=== PATIENT | female | born 1930 | race Caucasian/White ===

== ENCOUNTER 2017-01-14 10:30 | Outpatient (RCR) | payer MEDICARE, BC | END 2017-01-14 11:00 | disposition home or self-care (01) | LOC: PT 10:30 | DX: M25.511 Pain in right shoulder (principal); M25.611 Stiffness of right shoulder, not elsewhere classified; G25.2 Other specified forms of tremor ==

== ENCOUNTER 2017-04-16 11:00 | Outpatient (RCR) | payer MEDICARE, BC ==
[2017-04-17] MEDS ORDERED: TIROSINT75 MC1 PO (13:44)
[2017-04-17] MEDS ORDERED: ADULT ASPIRIN R81 MG PO (13:44)
[2017-04-17] MEDS ORDERED: PRINIVIL5 M1 PO (13:44)
[2017-04-17] MEDS ORDERED: FUROSEMIDE20 MG PO (13:44)
[2017-04-17] MEDS ORDERED: PRAVACHOL 20MG20 MG PO (13:48)
[2017-04-17] MEDS ORDERED: MYSOLINE50 M1 PO (13:49)
[2017-04-17] MEDS ORDERED: ACETAMINOPHEN325 M3 PO (13:49)
[2017-04-17] MEDS ORDERED: IBU400 MG PO (13:50)
[2017-04-17] MEDS ORDERED: SENNOSIDES PO (13:51)
[2017-04-17] MEDS ORDERED: [UNRECOGNIZED DRUG - OTHER] PO (13:51)
[2017-04-17] MEDS ORDERED: LIDOPATCH1 EACH TP (14:00)
== END 2017-07-12 | disposition home or self-care (01) ==
LOC: PT
DX: G56.21 Lesion of ulnar nerve, right upper limb (principal)

== ENCOUNTER 2017-04-17 10:26 | Inpatient (IN) | payer MEDICARE, BC ==
[~2017-04-17] VITALS: Ht 149.9 cm; Wt 48.2 kg
--- NOTE | 2017-04-17 10:26 | NUR ---
PT ARRIVES VIA POV, ADMITTED TO [facility], ROOM 205. PT A&O, DENIES PAIN, REPORTS BACK IS "ACHY". REDNESS NOTED TO L WRIST, PT REPORTS HAVING "SPIDER BITE" THAT SHE HAS BEEN TREATING X 2 DAYS WITH HYDROCORTISONE CREAM. REPORTS REDNESS IS BETTER. SKIN TO COCCYX AREA NOTED TO HAVE BROWN DISCOLORATION BUT NO OPEN AREAS. STATES THAT WHILE HOSPITALIZED AT [facility] RECENTLY SHE HAD BEEN TREATED FOR STAGE II PRESSURE ULCER BUT UPON F/U WITH DR ORTEGA ON 04/09/17, HE REMOVED DRESSING AND REPORTED TO PT THAT IT APPEARED TO BE HEALED. RLE 3+ PITTING EDEMA, LLE 2+ PITTING EDEMA. PT REPORTS PRIOR TO FALL IN MARCH, SHE DID NOT HAVE LE EDEMA SHE WAS VERY ACTIVE. PT USES WALKER FOR AMBULATION BUT REPORTS PRIOR TO FALL SHE AMBULATED WITHOUT ASSISTIVE DEVICES. PT STATES THAT SHE WAS D/C FROM [facility]PROX 2 WEEKS AGO TO HOME, WAS RECEIVING OP THERAPY AT [facility] AND DENIES HOME HEALTH. ACCORDING TO PT, SHE HAS NOT SHOWERED OR CHANGED CLOTHING SINCE RETURNING HOME 2 WEEKS AGO BECAUSE "I COULDN'T DRESS OR UNDRESS MYSELF." ONCE PT IS ADMITTED, GIFTY HARRISON, OT, ASSISTS WITH SHOWER.
[2017-04-17 11:11] VITALS: BP 100/49
--- NOTE | 2017-04-17 13:20 | NUR ---
GIFTY HARRISON, OT, FITS PT WITH WRIST SPLINT TO ASSIST WITH WEAKNESS AND WRIST "DROP". INSTRUCTS THAT PT SHOULD WEAR SPLINT WHILE SLEEPING AND WHENEVER ADDITIONAL SUPPORT IS NEEDED.
[2017-04-17] MEDS ORDERED: FUROSEMIDE20 MG PO (13:44)
[2017-04-17] MEDS ORDERED: TIROSINT75 MC1 PO (13:44)
[2017-04-17] MEDS ORDERED: ADULT ASPIRIN R81 MG PO (13:44)
[2017-04-17] MEDS ORDERED: PRINIVIL5 M1 PO (13:44)
[2017-04-17 13:48] LABS: BASO # 0.1 (0.02-0.10); EOS # 0.2 (0.04-0.40); EOS % 3.4 % (1.0-5.0); HEMATOCRIT 32.6 % (37.0-47.0); HEMOGLOBIN 10.1 g/dL (12.5-16.0); LYMPH# 1.8 (1.50-4.00); MEAN CELL VOLUME 92 fl (78-100); MEAN CORPUSCULAR HEMOGLOBIN 29 pg (27-31); MEAN CORPUSCULAR HGB CONC 31 g/dL (33-37); MEAN PLATELET VOLUME 9.9 fl (7.4-10.4); MONO # 0.6 (0.20-0.80); NEU # 3.8 (1.40-6.50); PLATELET COUNT 323 K/mm3 (130-400); RED BLOOD COUNT 3.54 M/mm3 (4.10-5.30); WHITE BLOOD COUNT 6.5 K/mm3 (4.8-10.8)
[2017-04-17] MEDS ORDERED: PRAVACHOL 20MG20 MG PO (13:48)
[2017-04-17] MEDS ORDERED: ACETAMINOPHEN325 M3 PO (13:49)
[2017-04-17] MEDS ORDERED: MYSOLINE50 M1 PO (13:49)
[2017-04-17] MEDS ORDERED: IBU400 MG PO (13:50)
[2017-04-17] MEDS ORDERED: SENNOSIDES PO (13:51)
[2017-04-17] MEDS ORDERED: [UNRECOGNIZED DRUG - OTHER] PO (13:51)
[2017-04-17] MEDS ORDERED: LIDOPATCH1 EACH TP (14:00)
[2017-04-17 14:01] LABS: ALBUMIN 3.3 g/dL (3.5-5.0); BUN/CREATININE RATIO 33.7 (6.0-26.0); CALCIUM 8.3 mg/dL (8.4-10.2); POTASSIUM 4.8 mmol/L (3.6-5.0); TOTAL BILIRUBIN 0.1 mg/dL (0.2-1.3); TOTAL PROTEIN 6.4 g/dL (6.3-8.2)
--- NOTE | 2017-04-17 18:45 | NUR ---
Report received from Cristin Santana RN
[2017-04-17 18:51] VITALS: BP 87/44
--- NOTE | 2017-04-17 20:35 | NUR ---
Report received from Cristin Santana RN
--- NOTE | 2017-04-17 20:36 | NUR ---
Resting in bed, bed alarm set. Head of bed elevated. Pt's eyes closed even respirations.
--- NOTE | 2017-04-17 20:37 | NUR ---
Resting in bed, bed alarm set. Head of bed elevated. Pt wearing splint to right forearm, wrist and hand.
--- NOTE | 2017-04-17 21:46 | NUR ---
Given evening snack of vanilla pudding. Ate 100%. I assisted pt with spoon. Pt stated she has trouble holding items in her left hand. Rt hand and wrist have splint on her.
--- NOTE | 2017-04-17 22:00 | NUR ---
Pt assisted with own HS care and oral care.
--- NOTE | 2017-04-18 06:00 | NUR ---
Q hourly checks done. Bed alarm set. Pt has repositioned self with assistance.
[2017-04-18 06:29] VITALS: BP 97/51
--- NOTE | 2017-04-18 07:00 | NUR ---
Report given to Sue Gonzalez RN
--- NOTE | 2017-04-18 07:15 | NUR ---
report from sandhya smith
[2017-04-18 07:52] LABS: URINE APPEARANCE HAZY; URINE COLOR YELLOW
[2017-04-18 07:53] LABS: URINE BILIRUBIN NEGATIVE (NEGATIVE); URINE BLOOD NEGATIVE (NEGATIVE); URINE GLUCOSE NEGATIVE (NEGATIVE); URINE KETONE NEGATIVE (NEGATIVE); URINE LEUKOCYTE ESTERASE 1+ (NEGATIVE); URINE NITRATE NEGATIVE (NEGATIVE); URINE PROTEIN(semi-quant) TRACE mg/dL (NEGATIVE); URINE UROBILINOGEN NORMAL (NORMAL)
--- NOTE | 2017-04-18 08:30 | NUR ---
currently up in chair at bedside, describes chronic shoulder pain that is fairly well resolved with scheduled Motrin, she currently has a blue splint to right wrist-forearm, she states she thinks this feels better, chair alarms on, denies complaint or request.
--- NOTE | 2017-04-18 09:35 | NUR ---
Pt up to BR per request using walker and CGA w/ steady gait. Pt has med formed stool. Assisted pt to pull up pants (pt was able to get pants down without problems). Pt ambulates in garcia using walker w/ CGA to ER door and back - refused need to rest usp thru. Returns to recliner at bedside. Call light in reach and chair alarm on. Denies further needs. Awaiting family to bring her some clothes today. Had shower yesterday she reports so good for today.
--- NOTE | 2017-04-18 14:48 | NUR ---
PATIENTS DAUGHTER ARRIVES, DISCUSS PLAN OF CARE
[2017-04-18 18:25] VITALS: BP 93/49
--- NOTE | 2017-04-18 18:31 | NUR ---
currently in chair at bedside, blue brace remains to right wrist, this extrem is elevated, she does do exercises to this extrem frequently
--- NOTE | 2017-04-18 19:16 | NUR ---
REPORT TO NEEMA BETTS
--- NOTE | 2017-04-18 19:55 | NUR ---
Resting in bed, bed alarm set. Pt assisted with own HS and oral care. Denied having any needs or c/o's of pain.
--- NOTE | 2017-04-18 20:20 | NUR ---
Pt took evening medications in apple sauce. Pt ate the rest of the apple sauce for evening snack. Ate 100%. SCD's taken into room. Explained to pt what the SCD's are for. Pt stated she did not want to wear any Georges hose or SCD's tonight. She stated "I'll do it in the morning.
--- NOTE | 2017-04-19 01:10 | NUR ---
0100 Q hourly checks done. Bed alarm set. Pt has been resting in bed. Eyes closed even respirations. Pt has repositioned self. 0105 Pt used call light, up to bathroom, gait steady. Used walker, furs salesperson socks and gait belt on. Nursing staff at side.
--- NOTE | 2017-04-19 06:30 | NUR ---
Q hourly checks done. Bed alarm set. Pt currently awake and a/o x 3. Denies having any pain or SOB. Ambulated to the bathroom, used gait belt, box sealing machine feeder socks on and used walker. Myself at side. Gait steady.
[2017-04-19 06:33] VITALS: BP 102/58
--- NOTE | 2017-04-19 07:00 | NUR ---
Report to Sue Gonzalez RN
--- NOTE | 2017-04-19 07:10 | NUR ---
REPORT FROM NEEMA BETTS
--- NOTE | 2017-04-19 09:29 | NUR ---
UP IN CHAIR THIS AM FOR LETHA, DENIES DISCOMFORT, BLUE BRACE TO RIGHT WRIST REMOVED, FOR SKIN ASSESSEMENT AND SHOWER, SHE IS ENCOURAGD TO REMOVE THIS SEVERAL TIMES DAILY, CHAIR EXERCISES ARE ENCOURAGED.
--- NOTE | 2017-04-19 15:42 | NUR ---
RADIOLOGY HERE FOR X-RAY IN ED, HE COMPLETES THIS PATIENTS WHILE HERE
[2017-04-19 18:39] VITALS: BP 97/58
--- NOTE | 2017-04-19 18:58 | NUR ---
REPORT TO NEEMA BETTS
--- NOTE | 2017-04-19 20:00 | NUR ---
Resting in recliner, feet not elevated. Georges hose on. Pt denies having any needs or concerns.
--- NOTE | 2017-04-19 20:02 | NUR ---
Pt sitting on her chair cushion from home.
--- NOTE | 2017-04-19 20:30 | NUR ---
Ambulated in hallway, used walker gait belt and printing supplies sales representative socks on. Myself at pt's side. Gait steady. Pt a/o x 3. Visited with pt about her work history. Pt stated " You won't probably believe me but I was swing dance up until I fell." Pt stated, "I walk every day at home." Pt did own oral and HS care. I assisted pt with changing into night cloths. Bed alarm set.
--- NOTE | 2017-04-19 20:32 | NUR ---
Pt requested chair cushion to be placed under her coccyx.
--- NOTE | 2017-04-19 21:10 | NUR ---
Took evening medication with apple sauce. Pt ate the rest of the apple sauce for evening snack.
--- NOTE | 2017-04-20 02:10 | NUR ---
Q hourly checks done. Bed alarm set. Has been resting in bed eyes closed even respirations. Pt opens eyes when spoken too. Repositioned on to left side per pt request.
[2017-04-20 06:33] VITALS: BP 88/53
--- NOTE | 2017-04-20 07:15 | NUR ---
Report to Tabatha Nuñez RN
--- NOTE | 2017-04-20 07:20 | NUR ---
REPORT RECEIVED FROM ALPESH JOSEPH
--- NOTE | 2017-04-20 09:30 | NUR ---
PATIENT SITTING UP IN RECLINER. SHIFT ASSESSMENT COMPLETE. PATIENT ALERT AND ORIENTED X4. DENIES ANY PAIN OR DISCOMFORTS AT THIS TIME. DENIES SHORTNESS OF BREATH OR DIFFICULTIES BREATHING. HAS +3 EDEMA TO RIGHT LOWER EXT +2 EDEMA TO LEFT LOWER EXT. KNEE HIGH RYAN HOSE APPLIED AND PATIENT'S LEGS ELEVATED IN CHAIR. PATIENT'S CALL LIGHT WITHIN REACH. CHAIR ALARM ON.
[2017-04-20 09:45] VITALS: BP 109/67
[2017-04-20 18:26] VITALS: BP 96/52
--- NOTE | 2017-04-20 19:20 | NUR ---
Report received from Tabatha Nuñez RN. Pt up ambulating in hallway using walker, gait belt and falafel cart cook socks on. Gait steady. Brigida PLUMBING INSTRUCTOR at pt's side. Pt pleasant and talkative. Denies having any pain.
--- NOTE | 2017-04-20 21:05 | NUR ---
Awake and a/o x 3. Resting in recliner with feet down. RYAN hose on. Pt pleasant and talkative. Denies pain, nausea or SOB. Offered evening snack pt declined. Took evening medication without difficulty.
--- NOTE | 2017-04-20 23:00 | NUR ---
Report given to Sofia Gibbs RN. Pt resting in bed. Bed alarm set. Eyes closed even respirations. Brigida GOTTLIEB reported pt did own oral and HS care.
--- NOTE | 2017-04-21 00:30 | NUR ---
PT'S SCHEDULED MOTRIN GIVEN AT THIS TIME, REPORTS PAIN LEVEL OF 0, STATES WHEN SHE HAS PAIN IT IS LOCATED IN LOWER BACK, PT DENIES ANY NEEDS, ABLE TO TAKE PILLS WHOLE WITH NO DIFFICULTIES, SCD'S ON, NO ACUTE CHANGES NOTED OR NEEDS MENTIONED BY PATIENT AT THIS TIME, CALL LIGHT WITHIN REACH AND BED ALARM ON
[2017-04-21 06:35] VITALS: BP 136/62
--- NOTE | 2017-04-21 07:30 | NUR ---
REPORT FROM MARIE BETTS
--- NOTE | 2017-04-21 08:35 | NUR ---
PATIENT CURRENTLY IN CHAIR AT BEDSIDE, DENIES COMPLAINT OR REQUEST, SHE STATES SHE SLEEPS WELL UNTIL WE WAKE HER FOR NIGHT TIME MEDS, WHEN QUESTIONED SHE STATES SHE USUALLY ONLY TAKES MOTRIN AT BEDTIME AND SOMETIMES IN THE MORNING, ORDERS RECEIVED TO CHANGE MOTRIN TO AM/PM DOSE.
--- NOTE | 2017-04-21 13:49 | NUR ---
REPORT TO MAX BETTS
[2017-04-21 18:07] VITALS: BP 128/62
--- NOTE | 2017-04-21 20:55 | NUR ---
PATIENT SITTING ON SIDE OF BED. SHIFT ASSESSMENT COMPELTED AT THIS TIME. PATIENT A/O X4, DENIES PAIN. LUNGS CTA, DENIES COUGH OR SHORTNESS OF BREATH. +3 PITTING EDEMA NOTED TO RLE AND +2 PITTING EDEMA NOTED TO LLE, PATIENT EDUCATED ON ELEVATION THROUGHOUT THE DAY. BRACE APPLIED TO RIGHT WRIST. SCD'S ON. HS MEDICATIONS GIVEN. PATIENT WITHOUT FURTHER NEEDS, WILL CONTINUE TO MONITOR. CALL LIGHT WITHIN REACH AND BED ALARM ON.
--- NOTE | 2017-04-21 22:45 | NUR ---
PATIENT REQUESTING HER SCD'S TO BE REMOVED REPORTING SHE IS UNABLE TO GET A GOOD NIGHTS SLEEP WITH THEM ON. SCD'S REMOVED AT THIS TIME.
[2017-04-22 06:26] VITALS: BP 110/60
--- NOTE | 2017-04-22 08:10 | NUR ---
PT UP IN CHAIR EATING BREAKFAST, SEVERE HAND TREMORS NOTED UPON ASSESSMENT, PT DENIES A HISTORY OF P[place]INSONS OR HAVING A NEUROLOGIST MANAGING TREMORS, UMM AWARE OF THIS INFORMATION AND DISCUSSING OPTIONS WITH PATIENT, PT DENIES PAIN, DENIES ANY ACUTE CHANGES, COMPLEX ASSESSMENT COMPLETED AND CHARTED, PT IN STABLE CONDITION SITTING UP IN CHAIR WITH CHAIR ALARM LAB PACK CHEMIST LIGHT WITHIN REACH UPON EXITING ROOM
--- NOTE | 2017-04-22 12:00 | NUR ---
PT ASSISTED TO RESTROOM AT THIS TIME, ABLE TO AMBULATE SLOWLY WITH WALKER AND GAIT BELT 1:1 ASSIST FROM CHAIR OVER TO RESTROOM, STEADY SLOW GAIT NOTED, PT DENIES SOB OR PAIN WITH EXERTION, ABLE TO APPROPRIATELY USE CALL LIGHT AFTER TOILETING, ASSISTED WITH ORAL CARE AND RAHEEL CARE DUE TO TREMORS AT THIS TIME, PT HAS WORN HER WRIST SPLINT FOR APPROXIMATELY ONE HOUR THIS MORNING AND REPORTS THAT SHE TOOK IT OFF AND ATTEMPTED "WRIST RAISING" EXERCISES AND WAS ABLE TO RAISE HER WRIST 3X WITHOUT ASSISTANCE, SHE IS EXCITED TO REPORT THIS SUCCESS TO THERAPY, NO FURTHER NEEDS OR CHANGES AT THIS TIME, PT ASSISTED BACK TO CHAIR USING WALKER AND GAIT BELT, CHAIR ALARM ON AND CALL LIGHT WITHIN REACH, PT IS FULLY ALERT AND ORIENTED THROUGHOUT THIS SHIFT SO FAR
--- NOTE | 2017-04-22 12:22 | NUR ---
CONSULT ORDERED PER JOANN SALOMON STATES SHE IS WORKING ON GETTING AND APPOINTMENT TIME SCHEDULED, NO FURTHER ORDERS AT THIS TIME, PT IS AWARE AND AGREEABLE TO THIS NEURO CONSULT
--- NOTE | 2017-04-22 14:00 | NUR ---
FOLLOWING SWING BED MEETING TENTATIVE DC PLAN FOR NEXT Thursday04/30/16, PLANNING ON GOING HOME WITH HOME HEALTH
[2017-04-22 18:44] VITALS: BP 93/46
--- NOTE | 2017-04-22 19:55 | NUR ---
Report received from Sofia BETTS. Patient resting in bed with bed alarm on. MEDICAL RECORDS TECHNICIAN in room assisting with HS cares. A/O x4. Denies pain. Has bilateral upper extrimity tremors. Assessment completed. States she is ready to go to bed and would like her HS medications now. Bed alarm on. Call light in reach.
--- NOTE | 2017-04-22 20:15 | NUR ---
Scheduled HS medications taken. Medication list reviewed with patient. Refused Primidone. States "it makes me go to the bathroom, I don't take it at home at night." Reports she usually takes 2 in the morning and 2 in the afternoon at home. "it help my tremors anyway, just makes me pee at night". Requests this nurse assist her at putting on her brace. Brace applied to Right wrist. Medicatiions taking whole without difficulty. Denies futher wants or needs. Bed alarm on. Call light in reach.
--- NOTE | 2017-04-23 00:28 | NUR ---
Up to BR with one assist from BUTTON CUTTING MACHINE OPERATOR. Voids and assisted back to bed. Positioned on L side per request. Denies pain. Bed alarm on. Call light in reach.
--- NOTE | 2017-04-23 06:15 | NUR ---
Awaken for AM medication. Slept well. Up to BR PRN. Denies pain or needs. Bed alarm on. Call light in reach.
[2017-04-23 06:26] VITALS: BP 115/50
--- NOTE | 2017-04-23 07:19 | NUR ---
Report to Cristin BETTS
--- NOTE | 2017-04-23 17:05 | NUR ---
Pt refuses Primidone PM dose stating that at home she takes second dose at noon. States that she would be willing to take the 2nd dose at 1400.
[2017-04-23 18:06] VITALS: BP 87/44
--- NOTE | 2017-04-23 19:05 | NUR ---
Report received from Cristin Santana RN
--- NOTE | 2017-04-23 19:20 | NUR ---
Pt awake and a/o x 3. Up ambulating in hallway with Lefty DIGITAL ASSET MANAGER. Gait steady. Using walker, gait belt on. Wearing overnight caregiver socks.
--- NOTE | 2017-04-23 20:30 | NUR ---
Resting in recliner with chair alarm on. Feet note elevated. RYAN hose on. Offered evening snack, pt declined.
[2017-04-24 06:13] VITALS: BP 110/52
--- NOTE | 2017-04-24 08:07 | NUR ---
Report given to Cristin Santana RN
--- NOTE | 2017-04-24 08:08 | NUR ---
Report given to Cristin Santana RN
[2017-04-24 18:28] VITALS: BP 100/66
--- NOTE | 2017-04-24 19:30 | NUR ---
Report received from Cristin BETTS. Patient ambulated in hallway with SUPERINTENDENT PLANT to ER and down other halls with gait belt. No assistive device. Gait steady. Tolerated well, no shortness of breath. A/O x4. Rates pain to back 2/10, slight ache. Has splint on to R wrist. Has tremors to bilateral upper extremities. 3+ Edema to RLE, 2+ to LLE. HS medications taken. Refused Senokot states had 3 BM's today "and the last one I almost didn't make it". Denies further wants or needs. Pressure pad alarm on. Call light in reach.
--- NOTE | 2017-04-25 00:40 | NUR ---
Resting with eyes closed. No signs of pain or distress. Bed alarm on. Call light in reach.
[2017-04-25 06:31] VITALS: BP 117/60
--- NOTE | 2017-04-25 06:36 | NUR ---
Rested well all shift. Awaken for AM medications. Denies pain or needs. Bed alarm on. Call light in reach.
--- NOTE | 2017-04-25 07:07 | NUR ---
Report to Cristin BETTS.
--- NOTE | 2017-04-25 08:45 | NUR ---
Pt A&O x 3 but does repeat information that she has already told this RN. BLE with minimal edema, pulses easily palpable. Pt reports that she is looking forward to a shower this AM.
--- NOTE | 2017-04-25 11:15 | NUR ---
Pt shows this RN that if she uses gravity to her advantage, pt can perform dorsiflexion of wrist. Tremors continue to all extremeties, especially with use.
[2017-04-25 18:23] VITALS: BP 98/54
--- NOTE | 2017-04-25 19:40 | NUR ---
Report received from Cristin BETTS. Patient sitting up in recliner with chair alarm on. A/O x4. Denies pain. Has wrist splint in place to R wrist. Continue to have bilateral upper ext. tremors and shaking. Not as bad today as previous days. Assessment completed. MARKETING UNDERWRITER in to take patient for walk and to do therapy ordered exercises. Call light in reach.
[2017-04-26 06:31] VITALS: BP 127/57
--- NOTE | 2017-04-26 07:07 | NUR ---
Report to Cristin BETTS
--- NOTE | 2017-04-26 09:00 | NUR ---
Pt sitting up in recliner. R forearm in splint. Pt uses L arm for all tasks. Tremors appear to be more manageable this AM as pt made less mess to clothing protector. Pt denies pain or any further needs at this time.
[2017-04-26 18:22] VITALS: BP 90/56
--- NOTE | 2017-04-26 19:25 | NUR ---
Report received from Cristin Santana RN.
--- NOTE | 2017-04-26 20:00 | NUR ---
Resting in recliner, chair alarm on. Lower legs and feet not elevated in recliner. RYAN hose on. Offered evening snack, pt declined. Pt refused stool softner. Stated she has had two BM's today.
--- NOTE | 2017-04-26 20:15 | NUR ---
Ambulated in hallway with Brigida GOTTLIEB. Gait steady, rug receiving clerk socks on and gait belt on. Pt pleasant and talkative. Denies having any pain.
--- NOTE | 2017-04-26 22:00 | NUR ---
Q hourly checks done. Bed alarm set. Eyes closed even respirations. Pt did own oral and HS care. Offered evening snack, before oral care. Pt declined.
--- NOTE | 2017-04-27 05:00 | NUR ---
0400 Q hourly checks done. Bed alarm set. Eyes closed with even respirations. Pt repositioning self. 0430 Ambulated to the bathroom, used walker per pt request. Pt stated she felt "unsteady and weak" from moving around in bed attempting to get comfortable. Gait steady with walking. Used gait belt and counting machine operator socks on. Brigida HERNANDEZA at side. 0447 C/o of low mid back pain. Rated pain 3 out 10. Given scheduled motrin 400mg P0.
[2017-04-27 06:24] VITALS: BP 121/61
--- NOTE | 2017-04-27 07:15 | NUR ---
GARRY VANESSA RN
--- NOTE | 2017-04-27 07:18 | NUR ---
Report given to Sue Gonzalez RN
--- NOTE | 2017-04-27 08:15 | NUR ---
DURING AM ASSESSMENT THIS AM IT IS NOTED PATIENT HAS SEVERE SHAKING OF HANDS/ARMS, SHE STATES SHEIS USUALLY NOT LIKE THIS AT HOME, IT IS NOTED THAT MYSOLINE LAST DOES WAS AT 1600.
[2017-04-27 18:32] VITALS: BP 112/58
--- NOTE | 2017-04-27 19:57 | NUR ---
REPORT TO NEEMA BETTS
--- NOTE | 2017-04-27 20:30 | NUR ---
Pt awake and a/o x 3. Resting in recliner, chair alarm set. Denies having any pain or needs at this time. Offered evening snack pt refused.
--- NOTE | 2017-04-27 21:30 | NUR ---
Q hourly checks done. Bed alarm set. Resting in bed, eyes closed on and off with TV on. SALT LIFTER reports pt did own oral and HS care.
--- NOTE | 2017-04-27 23:05 | NUR ---
2303 Ambulated to the bathroom, gait belt on and inspector tester sorter socks on. Gait steady. Pt denied having any c/o of pain. Denied having any needs or concerns.
--- NOTE | 2017-04-28 06:00 | NUR ---
Q hourly checks done. Bed alarm has been set. Pt has repositioned self in bed. Pt ambulated to recliner per own request. Pt has used call light when needing to get up. Gait steady.
[2017-04-28 06:22] VITALS: BP 124/58
--- NOTE | 2017-04-28 07:25 | NUR ---
Report given to Sue Gonzalez RN
--- NOTE | 2017-04-28 08:05 | NUR ---
REPORT ERICH BETTS
--- NOTE | 2017-04-28 10:00 | NUR ---
awake, alert, up in chair earlier, currently works with PT/OT, wrist brace currently on right wrist, describes chronic shoulder pain that Ibuprofen helps, she is currently without request.
[2017-04-28 18:36] VITALS: BP 96/32
--- NOTE | 2017-04-28 19:30 | NUR ---
REPORT TO JUS BETTS
--- NOTE | 2017-04-28 20:50 | NUR ---
PATIENT SITTING UP IN CHAIR LOOKING THROUGH HER MAIL. SHIFT ASSESSMENT COMPLETED AT THIS TIME. PATIENT A/O X4, DENIES PAIN. LUNGS CTA, DENIES COUGH OR SHORTNESS OF BREATH. BRACE TO RIGHT WRIST CDI. +3 PITTING EDEMA NOTED TO RLE AND +2 NOTED TO LLE. HS MEDICATIONS GIVEN. PATIENT WITHOUT FURTHER NEEDS AT THIS TIME, WILL CONTINUE TO MONITOR. CALL LIGHT WITHIN REACH AND CHAIR ALARM ON.
[2017-04-29 06:23] VITALS: BP 120/54
--- NOTE | 2017-04-29 08:10 | NUR ---
PT UP IN CHAIR, FULLY ALERT AND ORIENTED, REPORTS SHE IS "VERY PLEASED" WITH THE PROGRESS SHES MADE AT 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
--- NOTE | 2017-04-29 15:19 | NUR ---
PT DENIES PAIN OR ACUTE CHANGES SO FAR THIS SHIFT, STABLE CONDITION, DENIES NEEDS, FULLY ALERT AND ORIENTED, STABLE CONDITION, WILL CONTINUE TO MONITOR HEALTH STATUS, PLAN TO DC TOMORROW STILL IN PLACE AT THIS TIME
[2017-04-29 17:41] VITALS: BP 107/50
--- NOTE | 2017-04-29 20:24 | NUR ---
PATIENT SITTING UP IN CHAIR WATCHING TV AND GOING THROUGH HER MAIL. SHIFT ASSESSMENT COMPLETED AT THIS TIME. PATIENT A/O X4, JOAQUIN PAIN. LUNGS CTA, DENIES COUGH OR SHORTNESS OF BREATH. +3 PITTING EDEMA NOTED TO RLE AND +2 PITTING EDEMA NOTED TO LLE. BRACE TO RIGHT WRIST CDI. PATIENT REFUSED STOOL SOFTENER TONIGHT BECAUSE SHE REPORTS HAVING A LOOSE STOOL THIS EVENING. HS MEDICATIONS GIVEN. PATIENT WITHOUT FURTHER NEEDS AT THIS TIME, WILL CONTINUE TO MONITOR. CALL LIGHT WITHIN REACH AND CHAIR ALARM ON.
[2017-04-30 06:30] VITALS: BP 140/63
--- NOTE | 2017-04-30 08:05 | NUR ---
PT UP IN CHAIR, FULLY ALERT AND ORIENTED, ABLE TO SUCESSFULLY TAKE PILLS AND EAT BREAKFAST INDEPENDENTLY, TREMORS APPEAR BETTER THIS MORNING BUT STILL MODERATE IN BUE, PT IS SMILING IN AFFECT AND REPORTS HER EXCITEMENT TO BE GOING HOME "THIS EVENING," NO ACUTE CHANGES NOTED FROM YESTERDAY AT THIS TIME, COMPLEX ASSESSMENT COMPLETED AND CHARTED, DENIES NEEDS, CALL LIGHT WITHIN REACH AND CHAIR ALARM ON UPON EXITING ROOM
--- NOTE | 2017-04-30 15:14 | NUR ---
PT UP IN CHAIR THROUGHOUT MOST OF SHIFT, WALKING STEADY IN HALLWAYS WITH 1:1 USING WALKER AND GAIT BELT, DENIES SOB, PAIN OR WEAKNESS, DENIES ANY ACUTE CHANGES THIS SHIFT, JOANN ASSISTING PT AT BEDSIDE WITH ANY HOME HEALTH QUESTIONS, PT STATES SHE ALREADY HAS MEALS ON WHEELS AND IS CALLING THEM TODAY TO START BACK UP TOMORROW, PT PLANS ON LEAVING AFTER SUPPER THIS EVENING, NO FURTHER QUESTIONS OR CONCERNS AT THIS TIME
--- NOTE | 2017-04-30 17:35 | NUR ---
PT'S RIDE ARIMARIANNE AT THIS TIME, ALL BELONGINGS PACKED UP TO BE SENT WITH PT, NO NEW MEDICATIONS ORDERED, ALL DC PAPERWORK REVIEWED WITH PATIENT AND UNDERSTOOD WELL EDUCATION ABOUT HOME HEALTH PROVIDED TO PT BY JOANN, PT DENIES FURTHER NEEDS OR QUESTIONS AT THIS TIME, PT LEAVING IN STABLE CONDITION
== END 2017-04-30 17:35 | disposition home health service (06) | DRG 948 ==
LOC: MED/SURG 10:26
PROVIDERS: ADMIT Physician Assistant
DX: R53.81 Other malaise (principal); I50.32 Chronic diastolic (congestive) heart failure; G20 Parkinson's disease; I10 Essential (primary) hypertension; R55 Syncope and collapse; S32.019D Unspecified fracture of first lumbar vertebra, subsequent encounter for fracture with routine healing; E03.9 Hypothyroidism, unspecified; W17.89XD Other fall from one level to another, subsequent encounter; R53.1 Weakness
CPT/HCPCS: G0283-GO